=== PATIENT | male | born 1955 | race Caucasian/White ===

== ENCOUNTER 2020-07-24 08:10 | Emergency (ER) | payer BC, MEDICARE ==
[2020-07-24] MEDS ORDERED: Sodium Chloride 0.9% 10 ML Syringe FLUSH PRN ×2 (08:59→10:50)
[2020-07-24] MEDS ORDERED: Iopamidol 755 Mg/ML 100 ML Bottle IVPUSH ONE (10:50)
[2020-07-24] MEDS ORDERED: Sodium Chloride 0.9% 100 ML IV SCH (11:00)
--- NOTE | 2020-07-24 11:43 | EDM.PDOC ---
ED HPI GENERAL MEDICAL PROBLEM - General Chief Complaint: Respiratory Problem Stated Complaint: COVID +/COUGH/SOB Time Seen by Provider: 07/24/20 08:28 Source of Information: Reports: Patient History Limitations: Reports: No Limitations - History of Present Illness INITIAL COMMENTS - FREE TEXT/NARRATIVE: The patient presents from home for cough, fever, chills, chest pain and sh ortness of breath. He was diagnosed with COVID 19 on the . He has felt okay until a few days ago he got more short of breath and had some chest pain. When he arrived here his oxygen saturations were 88 on room air. With 2L of oxygen his saturations did go up. He has a history of rheumatoid arthritis and hypertension. Onset: Gradual Duration: Week(s): Location: Reports: Chest Quality: Reports: Sharp Severity: Mild Improves with: Reports: None Worsens with: Reports: None Associated Symptoms: Reports: Chest Pain, Cough, Fever/Chills, Shortness of Breath. Denies: Headaches, Nausea/Vomiting - Related Data Allergies Allergy/AdvReac Type Severity Reaction Status Date / Time No Known Allergies Allergy Verified 07/24/20 08:33 Past Medical History - Past Health History Medical/Surgical History: Denies Medical/Surgical History Social & Family History - Tobacco Use Smoking Status *Q: Never Smoker ED ROS GENERAL - Review of Systems Review Of Systems: See Below Constitutional: Reports: Fever, Chills, Malaise, Weakness, Fatigue HEENT: Reports: No Symptoms Respiratory: Reports: Shortness of Breath, Cough Cardiovascular: Reports: Chest Pain Endocrine: Reports: No Symptoms GI/Abdominal: Reports: No Symptoms : Reports: No Symptoms Musculoskeletal: Reports: No Symptoms ED EXAM, GENERAL - Physical Exam Exam: See Below Exam Limited By: No Limitations General Appearance: Alert, No Apparent Distress Ears: Normal External Exam Nose: Normal Inspection Head: Atraumatic, Normocephalic Neck: Normal Inspection Respiratory/Chest: No Respiratory Distress, Decreased Breath Sounds, Rhonchi Cardiovascular: Regular Rate, Rhythm, No Edema, No Murmur GI/Abdominal: Soft, Non-Tender, No Organomegaly, No Mass Extremities: Normal Inspection Neurological: Alert, Oriented, No Motor/Sensory Deficits EKG INTERPRETATION EKG Date: 07/24/20 Time: 08:37 Rhythm: NSR Rate (Beats/Min): 83 [place]: Normal P-Wave: Present QRS: Normal ST-T: Normal QT: Normal Course - Vital Signs Last Recorded V/S: Last Vital Signs Temp 98.5 F 07/24/20 08:30 Pulse 81 07/24/20 08:30 Resp 20 07/24/20 08:30 BP 138/83 07/24/20 08:30 Pulse Ox 88 L 07/24/20 08:30 - Orders/Labs/Meds Orders: Active Orders 24 hr Category Date Time Status Cardiac Monitoring [RC] . DIRECTED Care 07/24/20 08:59 Active EKG Documentation Completion [RC] STAT Care 07/24/20 08:59 Active Oxygen Therapy [RC] PRN Care 07/24/20 08:59 Active Peripheral IV Care [RC] . DIRECTED Care 07/24/20 09:00 Active Ang Chest [CT] Stat Exams 07/24/20 09:55 Taken Chest 1V Frontal [CR] Stat Exams 07/24/20 09:00 Taken Sodium Chloride 0.9% [Normal Saline] 100 ml Med 07/24/20 11:00 Active IV ASDIRECTED Sodium Chloride 0.9% [Saline Flush] Med 07/24/20 08:59 Active 10 ml FLUSH ASDIRECTED PRN Sodium Chloride 0.9% [Saline Flush] Med 07/24/20 10:50 Active 10 ml FLUSH ONETIME PRN Peripheral IV Insertion Adult [OM.PC] Stat Oth 07/24/20 08:59 Ordered Medication Orders Sodium Chloride (Normal Saline) 100 mls @ 75 mls/hr IV ASDIRECTED TOMAS Last Admin: 07/24/20 11:30 Dose: 75 mls/hr Documented by: JATINDER Sodium Chloride (Saline Flush) 10 ml FLUSH ASDIRECTED PRN PRN Reason: Keep Vein Open Last Admin: 07/24/20 09:44 Dose: 10 ml Documented by: JOSE EDUARDO Sodium Chloride (Saline Flush) 10 ml FLUSH ONETIME PRN PRN Reason: IV FLUSH Last Admin: 07/24/20 11:30 Dose: 10 ml Documented by: JATINDER Labs: Laboratory Tests 07/24/20 07/24/20 07/24/20 Range/Units 08:50 08:50 08:50 WBC 6.99 (4.23-9.07) K/mm3 RBC 5.11 (4.63-6.08) M/mm3 Hgb 14.3 (13.7-17.5) gm/dl Hct 44.1 (40.1-51.0) % MCV 86.3 (79.0-92.2) fl MCH 28.0 (25.7-32.2) pg MCHC 32.4 (32.2-35.5) g/dl RDW Std Deviation 41.5 (35.1-43.9) fL Plt Count 285 (163-337) K/mm3 MPV 9.1 L (9.4-12.3) fl Neut % (Auto) 91.7 H (34.0-67.9) % Lymph % (Auto) 4.0 L (21.8-53.1) % [place] % (Auto) 4.1 L (5.3-12.2) % Eos % (Auto) 0 L (0.8-7.0) Baso % (Auto) 0.1 (0.1-1.2) % Neut # (Auto) 6.40 H (1.78-5.38) K/mm3 Lymph # (Auto) 0.28 L (1.32-3.57) K/mm3 [place] # (Auto) 0.29 L (0.30-0.82) K/mm3 Eos # (Auto) 0.00 L (0.04-0.54) K/mm3 Baso # (Auto) 0.01 (0.01-0.08) K/mm3 Manual Slide Review Abnormal smear D-Dimer, Quantitative 1.40 H (0.19-0.50) mg/L Puncture Site ABG pH (7.35-7.45) ABG pCO2 (35.0-45.0) mmHg ABG pO2 (80.0-100.0) mmHg ABG HCO3 (22.0-26.0) meq/L ABG O2 Saturation (96.0-97.0) % ABG Base Excess (-2-2.0) Chepe Test A-a Gradient mmHg O2 Delivery Device Oxygen Flow Rate FiO2 (21.00-100.00) % Sodium 131 L (136-145) mEq/L Potassium 4.2 (3.5-5.1) mEq/L Chloride 98 (98-107) mEq/L Carbon Dioxide 23 (21-32) mEq/L Anion Gap 14.2 (5-15) BUN 22 H (7-18) mg/dL Creatinine 1.3 (0.7-1.3) mg/dL Est Cr Clr Drug Dosing 66.81 mL/min Estimated GFR (MDRD) 55 (>60) mL/min BUN/Creatinine Ratio 16.9 (14-18) Glucose 130 H (80-115) mg/dL Lactic Acid (0.4-2.0) mmol/L Calcium 8.3 L (8.5-10.1) mg/dL Ferritin (26-388) ng/ml Total Bilirubin 0.5 (0.2-1.0) mg/dL AST 84 H (15-37) U/L ALT 97 H (16-63) U/L Alkaline Phosphatase 97 (46-116) U/L Lactate Dehydrogenase 376 H (85-227) U/L Troponin I < 0.017 (0.00-0.056) ng/mL C-Reactive Protein 25.9 H* (<1.0) mg/dL NT-Pro-B Natriuret Pep (0-125) pg/mL Total Protein 6.6 (6.4-8.2) g/dl Albumin 2.3 L (3.4-5.0) g/dl Globulin 4.3 gm/dL Albumin/Globulin Ratio 0.5 L (1-2) 07/24/20 07/24/20 07/24/20 Range/Units 08:50 08:50 08:50 WBC (4.23-9.07) K/mm3 RBC (4.63-6.08) M/mm3 Hgb (13.7-17.5) gm/dl Hct (40.1-51.0) % MCV (79.0-92.2) fl MCH (25.7-32.2) pg MCHC (32.2-35.5) g/dl RDW Std Deviation (35.1-43.9) fL Plt Count (163-337) K/mm3 MPV (9.4-12.3) fl Neut % (Auto) (34.0-67.9) % Lymph % (Auto) (21.8-53.1) % [place] % (Auto) (5.3-12.2) % Eos % (Auto) (0.8-7.0) Baso % (Auto) (0.1-1.2) % Neut # (Auto) (1.78-5.38) K/mm3 Lymph # (Auto) (1.32-3.57) K/mm3 [place] # (Auto) (0.30-0.82) K/mm3 Eos # (Auto) (0.04-0.54) K/mm3 Baso # (Auto) (0.01-0.08) K/mm3 Manual Slide Review D-Dimer, Quantitative (0.19-0.50) mg/L Puncture Site ABG pH (7.35-7.45) ABG pCO2 (35.0-45.0) mmHg ABG pO2 (80.0-100.0) mmHg ABG HCO3 (22.0-26.0) meq/L ABG O2 Saturation (96.0-97.0) % ABG Base Excess (-2-2.0) Chepe Test A-a Gradient mmHg O2 Delivery Device Oxygen Flow Rate FiO2 (21.00-100.00) % Sodium (136-145) mEq/L Potassium (3.5-5.1) mEq/L Chloride (98-107) mEq/L Carbon Dioxide (21-32) mEq/L Anion Gap (5-15) BUN (7-18) mg/dL Creatinine (0.7-1.3) mg/dL Est Cr Clr Drug Dosing mL/min Estimated GFR (MDRD) (>60) mL/min BUN/Creatinine Ratio (14-18) Glucose (80-115) mg/dL Lactic Acid 1.5 (0.4-2.0) mmol/L Calcium (8.5-10.1) mg/dL Ferritin 1785 H (26-388) ng/ml Total Bilirubin (0.2-1.0) mg/dL AST (15-37) U/L ALT (16-63) U/L Alkaline Phosphatase (46-116) U/L Lactate Dehydrogenase (85-227) U/L Troponin I (0.00-0.056) ng/mL C-Reactive Protein (<1.0) mg/dL NT-Pro-B Natriuret Pep 438 H (0-125) pg/mL Total Protein (6.4-8.2) g/dl Albumin (3.4-5.0) g/dl Globulin gm/dL Albumin/Globulin Ratio (1-2) 07/24/ Range/Units 09:25 WBC (4.23-9.07) K/mm3 RBC (4.63-6.08) M/mm3 Hgb (13.7-17.5) gm/dl Hct (40.1-51.0) % MCV (79.0-92.2) fl MCH (25.7-32.2) pg MCHC (32.2-35.5) g/dl RDW Std Deviation (35.1-43.9) fL Plt Count (163-337) K/mm3 MPV (9.4-12.3) fl Neut % (Auto) (34.0-67.9) % Lymph % (Auto) (21.8-53.1) % [place] % (Auto) (5.3-12.2) % Eos % (Auto) (0.8-7.0) Baso % (Auto) (0.1-1.2) % Neut # (Auto) (1.78-5.38) K/mm3 Lymph # (Auto) (1.32-3.57) K/mm3 [place] # (Auto) (0.30-0.82) K/mm3 Eos # (Auto) (0.04-0.54) K/mm3 Baso # (Auto) (0.01-0.08) K/mm3 Manual Slide Review D-Dimer, Quantitative (0.19-0.50) mg/L Puncture Site Lt radial ABG pH 7.50 H (7.35-7.45) ABG pCO2 29.0 L (35.0-45.0) mmHg ABG pO2 66.0 L (80.0-100.0) mmHg ABG HCO3 22.4 (22.0-26.0) meq/L ABG O2 Saturation 94.7 L (96.0-97.0) % ABG Base Excess 0.6 (-2-2.0) Chepe Test Positive A-a Gradient 98 mmHg O2 Delivery Device Nasal cannula Oxygen Flow Rate 2.0 FiO2 28.00 (21.00-100.00) % Sodium (136-145) mEq/L Potassium (3.5-5.1) mEq/L Chloride (98-107) mEq/L Carbon Dioxide (21-32) mEq/L Anion Gap (5-15) BUN (7-18) mg/dL Creatinine (0.7-1.3) mg/dL Est Cr Clr Drug Dosing mL/min Estimated GFR (MDRD) (>60) mL/min BUN/Creatinine Ratio (14-18) Glucose (80-115) mg/dL Lactic Acid (0.4-2.0) mmol/L Calcium (8.5-10.1) mg/dL Ferritin (26-388) ng/ml Total Bilirubin (0.2-1.0) mg/dL AST (15-37) U/L ALT (16-63) U/L Alkaline Phosphatase (46-116) U/L Lactate Dehydrogenase (85-227) U/L Troponin I (0.00-0.056) ng/mL C-Reactive Protein (<1.0) mg/dL NT-Pro-B Natriuret Pep (0-125) pg/mL Total Protein (6.4-8.2) g/dl Albumin (3.4-5.0) g/dl Globulin gm/dL Albumin/Globulin Ratio (1-2) Meds: Medications Generic Name Dose Route Start Last Admin Trade Name Freq PRN Reason Stop Dose Admin Sodium Chloride 100 mls @ 75 mls/hr 07/24/20 11:00 07/24/20 11:30 Normal Saline IV 75 mls/hr ASDIRECTED TOMAS Administration Sodium Chloride 10 ml 07/24/20 08:59 07/24/20 09:44 Saline Flush FLUSH 10 ml ASDIRECTED PRN Administration Keep Vein Open Sodium Chloride 10 ml 07/24/20 10:50 07/24/20 11:30 Saline Flush FLUSH 10 ml ONETIME PRN Administration IV FLUSH Discontinued Medications Generic Name Dose Route Start Last Admin Trade Name Freq PRN Reason Stop Dose Admin Dexamethasone 6 mg 07/24/20 12:17 Dexamethasone IVPUSH 07/24/20 12:18 ONETIME ONE Enoxaparin Sodium 100 mg 07/24/20 11:49 Lovenox SUBCUT 07/24/20 11:50 ONETIME ONE Remdesivir 200 mg/ Sodium 250 mls @ 250 mls/hr 07/24/20 12:18 Chloride IV 07/24/20 12:19 ONETIME ONE Iopamidol 100 ml 07/24/20 10:50 07/24/20 11:30 Isovue-370 (76%) IVPUSH 07/24/20 10:51 100 ml ONETIME ONE Administration - Re-Assessments/Exams Free Text/Narrative Re-Assessment/Exam: 07/24/20 12:28 I ordered oxygen, IV saline lock, EKG, CXR, labs, blood cultures, lactic acid and ABG. His EKG shows a NSR with no acute changes. His CXR shows bilateral infiltrates. His CBC looks good. His D-dimer was elevated at 1.4. I have ordered a CT angio of his chest. His pH was elevated at 7.5. His pCO2 is low at 29. His pO2 is low at 66. I bumped up his oxygen. His Na is low at 131. His glucose is elevated at 130. His ferritin is elevated at 1785. His AST is elevated at 84. His ALT is elevated at 97. His LDH is elevated at 376. His troponin is negative. His CRP is elevated at 25.9. His BNP is elevated at 438. His CT shows positive for 1 small nonocclusive PE. Bilateral pulmonary infiltrates. Commonly reported imaging features of COVID 19 pneumonia are present. Other processes such as influenza pneumonia and organizing pneumonia, as can be seen with drug toxicity and connective tissue disease, can cause a similar imaging pattern. I ordered lovenox 100mg subcutaneous. I feel he needs to be admitted. We do not have beds here. I called both hospitals in [place] and they do not have beds. I called [facility] in [place] and talked with Dr Shipley and he agreed to the transfer. He did want me to start him on some remdisivir 200mg IV and dexamethasone 6mg IV. He will be going by fixed wing. Departure - Departure Time of Disposition: 12:40 Disposition: DC/Tfer to Acute Hospital 02 Condition: Serious Clinical Impression: COVID-19, Pneumonia due to COVID-19 virus, Hypoxia Pulmonary embolism Qualifiers: Pulmonary embolism type: other Chronicity: acute Acute cor pulmonale presence: without acute cor pulmonale Qualified Code(s): I26.99 - Other pulmonary embolism without acute cor pulmonale - Discharge Information Referrals: Manjinder Berry MD [Primary Care Provider] - Forms: ED Department Discharge Sepsis Event Note (ED) - Evaluation Sepsis Screening Result: No Definite Risk - Focused Exam Vital Signs: Vital Signs Temp Pulse Resp BP Pulse Ox 07/24/20 08:30 98.5 F 81 20 138/83 88 L - My Orders Last 24 Hours: My Active Orders 07/24/20 08:59 Cardiac Monitoring [RC] . DIRECTED EKG Documentation Completion [RC] STAT Oxygen Therapy [RC] PRN Sodium Chloride 0.9% [Saline Flush] 10 ml FLUSH ASDIRECTED PRN Peripheral IV Insertion Adult [OM.PC] Stat 07/24/20 09:00 Peripheral IV Care [RC] . DIRECTED Chest 1V Frontal [CR] Stat 07/24/20 09:55 Ang Chest [CT] Stat 07/24/20 10:50 Sodium Chloride 0.9% [Saline Flush] 10 ml FLUSH ONETIME PRN 07/24/20 11:00 Sodium Chloride 0.9% [Normal Saline] 100 ml IV ASDIRECTED - Assessment/Plan Last 24 Hours: My Active Orders 07/24/20 08:59 Cardiac Monitoring [RC] . DIRECTED EKG Documentation Completion [RC] STAT Oxygen Therapy [RC] PRN Sodium Chloride 0.9% [Saline Flush] 10 ml FLUSH ASDIRECTED PRN Peripheral IV Insertion Adult [OM.PC] Stat 07/24/20 09:00 Peripheral IV Care [RC] . DIRECTED Chest 1V Frontal [CR] Stat 07/24/20 09:55 Ang Chest [CT] Stat 07/24/20 10:50 Sodium Chloride 0.9% [Saline Flush] 10 ml FLUSH ONETIME PRN 07/24/20 11:00 Sodium Chloride 0.9% [Normal Saline] 100 ml IV ASDIRECTED
[2020-07-24] MEDS ORDERED: Enoxaparin 100 MG/1 ML Syringe SUBCUT ONE (11:49)
[2020-07-24] MEDS ORDERED: Dexamethasone 4 MG/ML SDV IVPUSH ONE (12:17)
--- NOTE | 2020-08-26 15:34 | CR ---
PROCEDURE INFORMATION: Exam: XR Chest, 1 View Exam date and time: 07/24/2020 8:49 AM Age: 64 years old Clinical indication: Chest pain TECHNIQUE: Imaging protocol: XR of the chest Views: 1 view. COMPARISON: No relevant prior studies available. FINDINGS: Lungs: Patchy bilateral opacities may represent multifocal pneumonia. . Pleural space: Unremarkable. No pleural effusion. No pneumothorax. Heart/Mediastinum: Unremarkable. No cardiomegaly. Bones/joints: Unremarkable. IMPRESSION: Patchy bilateral opacities may represent multifocal pneumonia. . Thank you for allowing us to participate in the care of your patient. Dictated and Authenticated by: Hannah Rivera MD 08/26/2020 4:17 PM Central Time ([place] & June) [place]
--- NOTE | 2020-09-03 09:43 | CT ---
PROCEDURE INFORMATION: Exam: CT Angiography Chest With Contrast Exam date and time: 07/24/2020 10:10 AM Age: 64 years old Clinical indication: Shortness of breath; Patient HX: SOB ? covid+, TECHNIQUE: Imaging protocol: Computed tomographic angiography of the chest with intravenous contrast. 3D rendering (Not supervised by radiologist): MIP and/or 3D reconstructed images were created by the technologist. Radiation optimization: All CT scans at this facility use at least one of these dose optimization techniques: automated exposure control; mA and/or kV adjustment per patient size (includes targeted exams where dose is matched to clinical indication); or iterative reconstruction. COMPARISON: CR Chest 1V Frontal 07/24/2020 8:49 AM FINDINGS: Pulmonary arteries: There is a linear area of the filling defect within a left upper lobe pulmonary artery on image 4/60 consistent with a nonocclusive small PE. Aorta: Unremarkable. No aortic aneurysm. No aortic dissection. Lungs: Bilateral ground-glass appearance is seen chiefly peripherally. Pleural space: Unremarkable. No pneumothorax. No pleural effusion. Heart: Unremarkable. No cardiomegaly. No pericardial effusion. No evidence of right heart strain. Lymph nodes: Unremarkable. No enlarged lymph nodes. Liver: The liver is moderately fatty but not completely scanned through. Bones/joints: Unremarkable. No acute fracture. Soft tissues: Unremarkable. IMPRESSION: 1. Positive for 1 small nonocclusive PE. 2. Bilateral pulmonary infiltrates. 3. Commonly reported imaging features of COVID-19 pneumonia are present. Other processes such as influenza pneumonia and organizing pneumonia, as can be seen with drug toxicity and connective tissue disease, can cause a similar imaging pattern. (Reference: Colt) REFERENCES: Colt Parsons et al., Rad[employer] Society of [place] Expert Consensus Statement on Reporting Chest CT Findings Related to COVID-19. Endorsed by the Society of Thoracic Radiology, the [place] [employer], and RSNA. Published January 17, 2020. Thank you for allowing us to participate in the care of your patient. Dictated and Authenticated by: Eugene Ayala MD 09/02/2020 1:23 PM Central Time ([place] & June) [place]
== END 2020-07-24 14:25 ==
LOC: JD.ED 08:10
DX: I26.99 Other pulmonary embolism without acute cor pulmonale (principal); U07.1 COVID-19; J12.89 Other viral pneumonia; R09.02 Hypoxemia; R06.02 Shortness of breath
CPT/HCPCS: 36415; 36600; 71045; 71275; 80053; 82728; 82803; 83605; 83615; 83880; 84484; 85025; 85379; 86140; 93005; 96361; 96365; 96372; 96375; 99285; J1100; J1650; J7050; Q9967; 93010; 99284

== ENCOUNTER 2022-09-15 06:40 | Observation (INO) | payer MEDICARE, BC ==
[2022-09-15] MEDS ORDERED: Ondansetron 4 MG/2 ML SDV IVPUSH ONE (07:05)
[2022-09-15] MEDS ORDERED: Sodium Chloride 0.9% 10 ML Syringe FLUSH PRN (07:05)
[2022-09-15] MEDS ORDERED: HYDROmorphone 0.5 MG/0.5 ML Syringe IVPUSH ONE ×2 (07:06→09:43)
[2022-09-15] MEDS ORDERED: Iopamidol 612 MG/ML 50 ML SDV IVPUSH ONE (07:12)
[2022-09-15] MEDS ORDERED: Iopamidol 612 MG/ML 100 ML Bottle IVPUSH ONE (07:12)
[2022-09-15] MEDS ORDERED: Sodium Chloride 0.9% 1,000 ML IV SCH (07:15)
[2022-09-15 07:27] LABS: ESTIMATED GFR 59 mL/min (>60)
[2022-09-15] MEDS ORDERED: Piperacillin/Tazobactam 4.5 GM in Sodium Chloride 0.9% 100 ML IV ONE (08:51)
[2022-09-15] MEDS ORDERED: Citric Acid/Sodium Citrate Solution 30 ML Cup PO ONE (12:44)
[2022-09-15] MEDS ORDERED: Sugammadex Sodium 200 MG/2 ML VIAL ONE (13:06)
[2022-09-15] MEDS ORDERED: fentaNYL 100 MCG/2 ML SDV ONE ×3 (13:17→14:58)
[2022-09-15] MEDS ORDERED: Midazolam 1 MG/ML 2 ML SDV ONE (13:18)
[2022-09-15] MEDS ORDERED: Ketamine 500 mg/10 ML MDV ONE (13:18)
[2022-09-15] MEDS ORDERED: Propofol 200 MG/20 ML SDV ONE (13:18)
[2022-09-15] MEDS ORDERED: Ondansetron 4 MG/2 ML SDV ONE (13:24)
[2022-09-15] MEDS ORDERED: Dexamethasone 4 MG/ML 5 ML MDV ONE (13:24)
[2022-09-15] MEDS ORDERED: Rocuronium 50 MG/5 ML Vial ONE (13:24)
[2022-09-15] MEDS ORDERED: Metoclopramide 10 MG/2 ML SDV ONE (13:24)
[2022-09-15] MEDS ORDERED: Lidocaine 1% 5 ML VIAL ONE ×2 (13:24→15:01)
[2022-09-15] MEDS ORDERED: fentaNYL 100 MCG/2 ML SDV IVPUSH PRN (13:28)
[2022-09-15] MEDS ORDERED: Ondansetron 4 MG/2 ML SDV IVPUSH PRN (13:28)
[2022-09-15] MEDS ORDERED: Lidocaine 1% with EPINEPHrine 1:100,000 10 ML MDV ONE (13:28)
[2022-09-15] MEDS ORDERED: HYDROmorphone 0.5 MG/0.5 ML Syringe IVPUSH PRN (13:28)
[2022-09-15] MEDS ORDERED: Bupivacaine 0.5%/EPINEPHrine 1:200,000 50 ML MDV ONE (13:28)
[2022-09-15] MEDS ORDERED: Phenylephrine HCl In 0.9% NaCl 1 MG/10 ML Vial ONE (13:45)
[2022-09-15] MEDS ORDERED: ceFAZolin 2 GM Vial ONE (14:01)
[2022-09-15] MEDS ORDERED: ePHEDrine 50 MG/ML SDV ONE (14:21)
[2022-09-15] MEDS ORDERED: Lactated Ringers 1,000 ML ONE (14:37)
[2022-09-15] MEDS ORDERED: Dexmedetomidine 200 MCG/2 ML SDV ONE (14:41)
[2022-09-15] MEDS ORDERED: Esmolol 100 MG/10 ML SDV ONE (14:53)
[2022-09-15] MEDS ORDERED: oxyCODONE 5 MG Tab PO PRN (15:38)
[2022-09-15] MEDS ORDERED: Ondansetron 4 MG Tab.DIS PO PRN (15:38)
[2022-09-15] MEDS ORDERED: Ketorolac 15 MG/ML SDV ONE (15:49)
[2022-09-15] MEDS ORDERED: Lactated Ringers 1,000 ML IV SCH (16:45)
[2022-09-15] MEDS: Acetaminophen 325 MG Tab PO SCH ×2 (18:02→21:36)
[2022-09-15] MEDS: Piperacillin/Tazobactam 4.5 GM in Sodium Chloride 0.9% 100 ML IV SCH (18:02)
[2022-09-15] MEDS: Ibuprofen 600 MG Tab PO SCH (21:38)
[2022-09-16] MEDS: Piperacillin/Tazobactam 4.5 GM in Sodium Chloride 0.9% 100 ML IV SCH (02:17)
[2022-09-16] MEDS: Acetaminophen 325 MG Tab PO SCH ×3 (02:18→10:30)
[2022-09-16] MEDS: Ibuprofen 600 MG Tab PO SCH ×2 (04:10→11:26)
[2022-09-16] MEDS ORDERED: Heparin Sodium 5,000 Units/ML Vial SUBCUT SCH (08:00)
== END 2022-09-16 11:49 | disposition home or self-care (01) ==
LOC: JD.ED 06:40 → JD.SDS 09:33 → JD.ICU 15:39
PROVIDERS: ADMIT Surgery; ATTEND Surgery
DX: K35.33 Acute appendicitis with perforation, localized peritonitis, and gangrene, with abscess (principal); I10 Essential (primary) hypertension; K42.9 Umbilical hernia without obstruction or gangrene; Z79.899 Other long term (current) drug therapy; Z90.49 Acquired absence of other specified parts of digestive tract
CPT/HCPCS: 00840; 36415; 74177; 74177-26; 80053; 83690; 85025; 88304; A9270-GY; J0690; J1100; J1170; J1644; J1885; J2250; J2405; J2543; J2704; J2765; J3010; J3490; J7030; J7120; Q9967